=== PATIENT | male | born 1975 | race Two or more races ===

== ENCOUNTER 2023-03-28 21:41 | Emergency (ER) | payer MEDICAID ==
[~2023-03-28] VITALS: Ht 165.1 cm; Wt 80.0 kg
[2023-03-28] MEDS ORDERED: HYDROCODONE/ACETAMINOPHEN 5-325 MG TABLET PO ONE (23:45)
[2023-03-28] MEDS ORDERED: LIDOCAINE/PF 1% 2 ML VIAL IM ONE (23:45)
[2023-03-28] MEDS ORDERED: CefTRIAXone SODIUM 1 GM/VIAL IM ONE (23:45)
[2023-03-29 00:36] VITALS: BP 160/72
== END 2023-03-29 02:39 | disposition home or self-care (01) ==
LOC: EMS 21:41
DX: S02.2XXA Fracture of nasal bones, initial encounter for closed fracture (principal); S02.40DA Maxillary fracture, left side, initial encounter for closed fracture; Y09 Assault by unspecified means; Y93.89 Activity, other specified; Y92.89 Other specified places as the place of occurrence of the external cause; Y99.8 Other external cause status
CPT/HCPCS: 99285; 70450; 70486; 96372; J0696; J3490

== ENCOUNTER 2023-03-31 13:19 | Emergency (ER) | payer MEDICAID ==
[~2023-03-31] VITALS: Ht 165.1 cm; Wt 80.0 kg
[2023-03-31 15:14] VITALS: BP 135/85
== END 2023-03-31 15:24 | disposition home or self-care (01) ==
LOC: EMS 13:23
DX: S02.40DA Maxillary fracture, left side, initial encounter for closed fracture (principal); S02.2XXA Fracture of nasal bones, initial encounter for closed fracture; R04.0 Epistaxis; Y08.89XA Assault by other specified means, initial encounter; Y93.89 Activity, other specified; Y92.89 Other specified places as the place of occurrence of the external cause; Y99.8 Other external cause status
CPT/HCPCS: 99281; Z7502